=== PATIENT | male | born 1965 | race African-American/Black ===

== ENCOUNTER 2024-01-28 01:25 | Emergency (ER) | payer OTHER, BC ==
[~2024-01-28] VITALS: Ht 177.8 cm; Wt 90.0 kg
[2024-01-28 01:38] VITALS: BP 137/82; PULSE 92; RESP 15; TEMP 98.5; O2SAT 100
== END 2024-01-28 08:32 | disposition left against medical advice (07) ==
LOC: ER 01:25
DX: F41.9 Anxiety disorder, unspecified (principal); Z53.21 Procedure and treatment not carried out due to patient leaving prior to being seen by health care provider
CPT/HCPCS: 99281